=== PATIENT | female | born 1945 | race Caucasian/White ===

== ENCOUNTER 2018-09-29 11:07 | Inpatient (IN) | payer OTHER, MEDICARE ==
[2018-09-29] MEDS ORDERED: ASPIRIN 81 MG CHEWABLE TABLETS PO ONE (11:38)
[2018-09-29] MEDS ORDERED: ASPIRIN COATED 81 MG TABLET.EC ONE (11:45)
[2018-09-29 12:06] LABS: BASO % 0.4 % (0-2.0); EOS % 0.6 % (0-4.5); HEMATOCRIT 26.6 % (32.4-45.2); HEMOGLOBIN 8.6 GM/dL (10.7-15.3); LYMPH % 90.8 % (8-40); MCH 29.4 pg (25.7-33.7); MCHC 32.4 g/dl (32.0-36.0); MEAN CELL VOLUME 90.6 fl (80-96); MEAN PLT VOLUME 8.1 fl (7.5-11.1); MONO % 1.9 % (3.8-10.2); NEUT % 6.3 % (42.8-82.8); PLATELET COUNT 99 K/MM3 (134-434); RBC 2.93 M/mm3 (3.60-5.2)
--- NOTE | 2018-09-29 12:12 | PDOC ---
History of Present Illness - General History Source: Patient Exam Limitations: No Limitations <ParulAllan - Last Filed: 09/29/18 14:54> <Nanci Harmon - Last Filed: 09/29/18 15:03> - General Chief Complaint: Chest Pain Stated Complaint: ARM AND CHEST PAIN Time Seen by Provider: 09/29/18 11:37 - History of Present Illness Initial Comments: 09/29/18 12:58 73y F hx of htn, DM, afib (on coumdin and dig), hl, thyroid disease presents with complaint of L sided cp radiationg ot the L arm for the past month and a half. Pt notes after coming back from her cruise in mid august, she has cough productive of greenish sputum and nasal and chest coingestion. CP is lieft sided and radiates to the L rib area seems worse with coughing. she went to her PMD who thought it was a URI and was treated with flonase, albuterol. Sypmtoms have been persistent. Pt also notes a mild pain behind her R knee without significantly incrased swelling. Pt also notes occasional decreased strength on her R arm, where she will drop things, but this is onconsistent. Family notes for the past fe days, she seemed not herself. Pt has chronic RUSSO, which is at baseline if she walks her usual pace. Pt denies any fever/chills, hemoptysis, leg swelling, back pain, abd pain, n/v, diapprhosis, ligheahdedness, palpitations. denies dysuria, frequency, diarrhea, jmelena, bpr. +family with URI sypmtoms but everyones symotoms have resolved except for her +recent travel - cruise to [employer], driving from [place] back to [place] Allergies: NKA Past surgical history: None reported. Social history: No reported alcohol, drug or cigarette use. 09/29/18 14:54 (Allan Teran) Past History - Past Medical History Cardiac Disorders: Yes (A FIB) COPD: No Diabetes: Yes HTN: Yes Hypercholesterolemia: Yes Thyroid Disease: Yes - Immunization History Immunization Up to Date: Yes - Suicide/Smoking/Psychosocial Hx Smoking Status: Yes Smoking History: Never smoked Have you smoked in the past 12 months: No Number of Cigarettes Smoked Daily: 0 If you are a former smoker, when did you quit?: 15yrs ago Hx Alcohol Use: No Drug/Substance Use Hx: No Substance Use Type: None <Allan Teran - Last Filed: 09/29/18 14:54> <Nanci Harmon - Last Filed: 09/29/18 15:03> - Past Medical History Allergies/Adverse Reactions: Allergies Allergy/AdvReac Type Severity Reaction Status Date / Time Sulfa (Sulfonamide AdvReac Verified 09/29/18 11:15 Antibiotics) Home Medications: Ambulatory Orders Levothyroxine [Synthroid -] 100 mcg PO DAILY 03/22/12 Aspirin Coated [Ecotrin -] 81 mg PO DAILY 08/02/16 Atorvastatin Ca [Lipitor] 20 mg PO HS 08/02/16 Digoxin [Lanoxin -] 0.25 mg PO DAILY 08/02/16 Furosemide [Lasix -] 20 mg PO DAILY 08/02/16 Losartan Potassium 25 mg PO DAILY 08/02/16 Metoprolol Succinate [Toprol XL -] 50 mg PO HS 08/02/16 Metoprolol Succinate [Toprol XL -] 100 mg PO DAILY 08/02/16 Warfarin Sodium [Coumadin] 1 mg PO ASDIR 08/05/16 Calcium Carb, Citrate/Vit D3 [Calcium + D3 ER Tablet] 1 tab PO DAILY 03/06/18 Fluticasone Prop 0.05% Nasal [Flonase -] 50 mg NS DAILY PRN 03/06/18 Multivitamin [One Daily] 1 tab PO DAILY 03/06/18 Potassium 1,080 mg PO BID 03/06/18 Review of Systems - Review of Systems Able to Perform ROS?: Yes <Allan Teran - Last Filed: 09/29/18 14:54> <Nanci Harmon - Last Filed: 09/29/18 15:03> - Review of Systems Comments:: 09/29/18 13:03 Constitutional - no reported Fever, Chills, HEENT: no reported vision changes, sore throat Respiratory: +RUSSO (at baseline), cough no reported cough, sob, hemoptysis Cardiac: +chest pain, no reported palpitations, light headedness, leg swelling Abd/GI: no reported abd pain, nausea, vomiting, blood per rectum, melena, diarrhea : no reported dysuria, frequency, discharge Musculskelatal - no reported back pain, joint swelling skin - no reported bruising, erythema, rash neurological: no reported headache, numbness, focal weakness, tingling, ataxia, hematologic: no reported easy bruising, easy bleeding (Allan Teran) *Physical Exam <Parul,Allan - Last Filed: 09/29/18 14:54> <Nanci Harmon - Last Filed: 09/29/18 15:03> - Vital Signs Last Vital Signs Temp Pulse Resp BP Pulse Ox 98.3 F 87 20 130/80 98 09/29/18 14:55 09/29/18 14:55 09/29/18 14:55 09/29/18 14:55 09/29/18 14:55 - Physical Exam Comments: 09/29/18 13:03 GENERAL: The patient is awake, alert, and fully oriented, Nontoxic - in no acute distress. HEAD: Normocephalic, atraumatic. EYES: extraocular movements intact, sclera anicteric, conjunctiva clear. ENT: Normal voice, Moist mucous membranes. NECK: Normal range of motion, supple LUNGS: Breath sounds equal, clear to auscultation bilaterally. No wheezes, no rhonchi, no rales. no respiratory distress, speaking complete sentences HEART: irregularly irregular ABDOMEN: Soft, mild LUQ tenderness, No guarding, no rebound. . No CVA tenderness EXTREMITIES: Normal range of motion, +1 pitting edema, R>L, neg homans, mild tenderness at proximal R calf NEUROLOGICAL: No facial assymetry, Normal speech, moving all 4 extremities spontaneously and ysmmetrically PSYCH: Normal mood, normal affect. SKIN: Warm, Dry, normal turgor, (Allan Teran) Heart Score/ECG Review <ParulAllan - Last Filed: 09/29/18 14:54> <Nanci Harmon - Last Filed: 09/29/18 15:03> - ECG Impressions Comment:: 09/29/18 12:11 Twelve-lead EKG was performed and reviewed by me. Irregularly irregular rate of 84 TWI in lead III unchanged from prior ekg in 2016 (Allan Teran) ED Treatment Course - LABORATORY CBC & Chemistry Diagram: 09/29/18 11:45 09/29/18 13:20 <Allan Teran - Last Filed: 09/29/18 14:54> - LABORATORY CBC & Chemistry Diagram: 09/29/18 11:45 09/29/18 13:20 <Nanci Harmon - Last Filed: 09/29/18 15:03> - ADDITIONAL ORDERS Additional order review: Laboratory Results 09/29/18 09/29/18 09/29/18 13:20 11:45 11:45 PT with INR INR D-Dimer 1275 H Sodium 139 140 Potassium 3.3 L 3.3 L Chloride 103 103 Carbon Dioxide 25 25 Anion Gap 11 12 BUN 19 H 18 Creatinine 1.0 1.0 Creat Clearance w eGFR 54.05 54.05 Random Glucose 112 H 105 Calcium 7.9 L 7.8 L Magnesium 1.4 L 1.4 L Total Bilirubin 1.1 H 1.0 AST 51 H 48 H ALT 37 33 Alkaline Phosphatase 116 119 H Creatine Kinase 45 45 Troponin I < 0.02 < 0.02 Total Protein 6.2 L 6.2 L Albumin 2.8 L 2.8 L Digoxin 1.66 09/29/18 11:45 PT with INR 22.60 H INR 1.90 H D-Dimer Sodium Potassium Chloride Carbon Dioxide Anion Gap BUN Creatinine Creat Clearance w eGFR Random Glucose Calcium Magnesium Total Bilirubin AST ALT Alkaline Phosphatase Creatine Kinase Troponin I Total Protein Albumin Digoxin 09/29/18 11:45 RBC 2.93 L MCV 90.6 MCHC 32.4 RDW 24.0 H MPV 8.1 D Neutrophils % 6.3 L D Lymphocytes % 90.8 H D Monocytes % 1.9 L Eosinophils % 0.6 D Basophils % 0.4 - Medications Given in the ED: ED Medications Discontinued Medications Generic Name Dose Route Start Last Admin Trade Name Freq PRN Reason Stop Dose Admin Aspirin 162 mg 09/29/18 11:38 09/29/18 11:49 Asa - PO 09/29/18 11:39 162 mg ONCE ONE Administration Medical Decision Making <Allan Teran - Last Filed: 09/29/18 14:54> <Nanci Harmon - Last Filed: 09/29/18 15:03> - Medical Decision Making 09/29/18 12:19 73yF hx of afib, hypothyroidism, presents with L sided cp radiationg to L shoulder, worse with inspiration, so she did with URI-like symptoms since coming back from a cruise. pt also with syptoms of intermittent arm weakness Exam the patient is well-appearing, in no acute distress her vital signs noted for mild hypoxia to the high 80s however corrects easily with 1 L of o2. Patient is in no acute respiratory distress. neuro exam intact Differential for this patient's symptoms includes pneumonia, pulmonary embolism , acs, anemia, metabolic derangement will ck labs, cxr if xray neg will obtain CTA will obtain CT head ekg to screen for arrythmia will reasses 09/29/18 14:27 labs reviewed noted for significant leukocytosis CTA neg for PE however, noted for splenomegaly suspect malignancy/leukemia ct head neg for acute process will admit for further management 09/29/18 14:[address] maradiaga covering for dr. gaines agrees wit admission for further mangaement will consult dr. kruger service (hemon) stable fo rmed surg Case discussed in detail with admitting physician including history, physical exam and ancillary studies. Admitting physician has assumed care for the patient, will follow all pending diagnostics and will complete the evaluation and treatment. (Allan Teran) 09/29/18 14:[address] Maradiaga's service. (Nanci Harmon) *DC/Admit/Observation/Transfer - Discharge Dispostion Decision to Admit order: Yes <Allan Teran - Last Filed: 09/29/18 14:54> <Nanci Harmon - Last Filed: 09/29/18 15:03> Diagnosis at time of Disposition: Splenomegaly Leukocytosis Qualifiers: Leukocytosis type: unspecified Qualified Code(s): D72.829 - Elevated white blood cell count, unspecified - Discharge Dispostion Condition at time of disposition: Improved - Referrals Referrals: Du Gaines MD [Primary Care Provider] - - Patient Instructions - Post Discharge Activity
[2018-09-29 12:14] LABS: WHITE BLOOD COUNT 81.5 K/mm3 (4.0-10.0)
[2018-09-29 12:34] LABS: INR 1.9 (0.83-1.09); PROTHROMBIN TIME (PATIENT) 22.6 SEC (9.7-13.0)
[2018-09-29 12:42] LABS: ALBUMIN 2.8 g/dl (3.4-5.0); ALK PHOS 119 U/L (45-117); ANION GAP 12 MMOL/L (8-16); BLOOD UREA NITROGEN 18 mg/dL (7-18); CALCIUM 7.8 mg/dL (8.5-10.1); CHLORIDE 103 mmol/L (98-107); CO2 25 mmol/L (21-32); GLUCOSE,RANDOM 105 mg/dL (74-106); MAGNESIUM 1.4 mg/dL (1.8-2.4); POTASSIUM 3.3 mmol/L (3.5-5.1); SGOT/AST 48 U/L (15-37); SGPT/ALT 33 U/L (13-61); SODIUM 140 mmol/L (136-145); TOT PROT 6.2 g/dl (6.4-8.2)
[2018-09-29 14:23] LABS: ALBUMIN 2.8 g/dl (3.4-5.0); ALK PHOS 116 U/L (45-117); ANION GAP 11 MMOL/L (8-16); BILIRUBIN,TOTAL 1.1 mg/dL (0.2-1); BLOOD UREA NITROGEN 19 mg/dL (7-18); CALCIUM 7.9 mg/dL (8.5-10.1); CHLORIDE 103 mmol/L (98-107); CO2 25 mmol/L (21-32); GLUCOSE,RANDOM 112 mg/dL (74-106); MAGNESIUM 1.4 mg/dL (1.8-2.4); POTASSIUM 3.3 mmol/L (3.5-5.1); SGOT/AST 51 U/L (15-37); SGPT/ALT 37 U/L (13-61); SODIUM 139 mmol/L (136-145); TOT PROT 6.2 g/dl (6.4-8.2)
[2018-09-29] MEDS ORDERED: FLUTICASONE PROP 0.05% 16 GM NASAL SPRAY NS PRN (15:09)
[2018-09-29] MEDS ORDERED: WARFARIN NA 1 MG TABLET (FP) PO SCH ×2 (15:15→18:00)
[2018-09-29] MEDS ORDERED: WARFARIN NA 1 MG TABLET (FP) ONE (15:18)
--- NOTE | 2018-09-29 15:48 | CON.CARD ---
Cardiology Consult (text) - Consultation Consultation Note: Cardiology Consult Dictated IMP: Suspected CLL Marked Anemia Permanent Atrial Fibrillation on Warfarin Non-obstructive CAD REC: 1. Maintain INR 2-3, may need to hold warfarin if plan for bone marrow bx 2. Heme Evaluation pending 3. Echo 4. Currently rate controlled, continue current Rx Will follow
[2018-09-29] MEDS ORDERED: POTASSIUM CHLORIDE TABS 20 MEQ TABLET.ER (FP) PO ONE (16:49)
[2018-09-29] MEDS: POTASSIUM CHLORIDE TABS 20 MEQ TABLET.ER (FP) PO SCH (16:51)
--- NOTE | 2018-09-29 16:55 | CONS ---
DATE OF CONSULTATION: DATE OF DICTATION: 09/29/2018 CARDIOLOGY CONSULTATION REQUESTED BY: Milton Bernal MD REASON FOR CONSULTATION: Evaluation of dyspnea and atrial fibrillation. Patient is a 73-year-old female known to me from office practice since approximately 2008. She has permanent atrial fibrillation on warfarin, history of nonischemic cardiomyopathy with normalized ejection fraction with rate control and medical therapy. She also has hypothyroidism. Over the last 6 weeks, she has experienced generalized fatigue, malaise, chills, and exertional dyspnea. She returned from a cruise several weeks ago with symptoms of what she thought was a viral URI and completed outpatient evaluations which included a course of antibiotics and the use of inhalers. Her symptoms persisted. She was recently discovered to be anemic. She was brought to the emergency room today by her family for persistent symptoms of malaise, generalized fatigue, and occasional chills. In the emergency department, she was found to be markedly anemic with hematocrit of 26.6, marked leukocytosis of 82,000 with 91% neutrophils. She was also thrombocytopenic. A CT scan was performed to rule out pulmonary embolism which was negative but also showed splenomegaly. In the emergency department, she was seen and examined in no acute distress. She appears pale. SHE HAS ALLERGIES TO SULFA. CURRENT MEDICATIONS: Include warfarin 1 mg p.o. nightly, multivitamin daily, Toprol XL 50 mg p.o. nightly, and 100 mg p.o. daily, losartan 25 mg p.o. daily, Synthroid 100 mcg p.o. daily, Lasix 20 mg p.o. daily, Flonase p.r.n., digoxin 0.125 p.o. daily, atorvastatin 20 p.o. nightly, and aspirin 81 mg daily. FAMILY HISTORY: Noncontributory. SOCIAL HISTORY: Lives with her significant other. She is a nonsmoker. Occasional alcohol. No illegal drugs. PHYSICAL EXAMINATION: Vital Signs: Afebrile in the ER to 98.3, pulse 87 and irregular, blood pressure 130/80, O2 saturation is 98% on room air. Neck: No bruits. No JVD. Heart: S1, 2 irregular. Chest: Decreased breath sounds at the bases with scattered rhonchi. No active wheezing. EKG showed atrial fibrillation at 84 beats per minute with nonspecific T-wave changes. Labs: White count 81,000, hemoglobin 8.6, hematocrit 26.6, platelets 99,000, absolute neutrophils 5.2, lymphocytes 91%. D-dimer was elevated 1275. INR 1.9. Sodium 139, potassium 3.3. Creatinine 1.0. Magnesium 1.4. Total bilirubin 1.1. AST 51, ALT 37, alkaline phosphatase 116. CK and troponin negative x2 sets. Albumin was 2.8. Digoxin level was normal at 1.66. A CT scan of the head showed no acute pathology. CTA of the chest showed no evidence of PE, chronic lung disease, left basilar atelectasis, and left lower lobe nodule. Cardiomegaly without pericardial effusion and splenomegaly which is new since December 2017. IMPRESSION: 1. 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 2. Marked anemia. 3. Permanent atrial fibrillation on warfarin. 4. Nonobstructive coronary disease. RECOMMENDATIONS: 1. INR goal of 2-3, may need to hold warfarin if there is plan for further hematologic workup-? bone marrow biopsy. 2. Heme evaluation is currently pending. 3. Echocardiogram. 4. Currently, heart rate is well controlled. We will continue home rate control medications. Will follow. BRINA LYNCH M.D. [id number]
--- NOTE | 2018-09-29 17:03 | PN ---
Progress Note (short form) - Note Progress Note: Consult dictated 73 year old presents with atypical chest pain and SOB Found to have anemia, thrombocytopenia and leucocytosis PMH- HBP, HPL, S/P [place], hx of gout, hx of anemia, hx of thryroid disease , DM(II ) Soc Hx- 43 pack years, social ETOH No industrial exposures Allergies- Nitro furantoin Meds Current Medications Generic Name Dose Route Start Last Admin Trade Name Freq PRN Reason Stop Dose Admin Aspirin 81 mg 09/30/18 10:00 Ecotrin - PO DAILY THEE Atorvastatin Calcium 20 mg 09/29/18 22:00 Lipitor - PO HS THEE Digoxin 0.25 mg 09/30/18 10:00 Lanoxin - PO DAILY THEE Fluticasone Propionate 1 spray 09/29/18 15:09 Flonase - NS DAILY PRN allegy Levothyroxine Sodium 100 mcg 09/30/18 07:00 Synthroid - PO DAILY@0700 THEE Losartan Potassium 25 mg 09/30/18 10:00 Cozaar - PO DAILY THEE Magnesium Oxide 400 mg 09/29/18 22:00 Mag-Ox - PO BID THEE Metoprolol Succinate 100 mg 09/30/18 10:00 Toprol Xl - PO DAILY THEE Metoprolol Succinate 50 mg 09/29/18 22:00 Toprol Xl - PO HS THEE Potassium Chloride 40 meq 09/29/18 15:45 09/29/18 16:51 K-Dur - PO 40 meq DAILY THEE Administration Warfarin Sodium 1 mg 09/29/18 18:00 Coumadin - PO DAILY@1800 [facility] ROS- headache - relieved by tyleno, epistaxis, atypical chest pain, SOB no GI complaints, Microscopic hematuria, neuropathy LE's, PE HEENT: KALANI, EOM Intact Oropharynx: No thrush, No mucositis Neck: Supple Nodes: Without adenopathy Breasts: Without masses Cor: irregular No murmurs, No gallops Lungs: rhonchi, bronchial breath sounds Abd: Soft, Normal bowel sounds, No organomegaly Ext:No significant edema Skin: No rashes, Integument intact CBC, BMP 09/29/18 11:45 09/29/18 13:20 Abnormal Lab Results 09/29/18 09/29/18 09/29/18 11:45 11:45 11:45 WBC 81.5 H* RBC 2.93 L Hgb 8.6 L Hct 26.6 L D RDW 24.0 H Plt Count 99 L D Neutrophils % 6.3 L D Neutrophils % (Manual) 2.0 L Lymphocytes % 90.8 H D Lymphocytes % (Manual) 50.0 H Monocytes % 1.9 L Blast Cells % (Manual) 40 H Nucleated RBC % 1 H PT with INR 22.60 H INR 1.90 H D-Dimer Potassium 3.3 L BUN Random Glucose Calcium 7.8 L Magnesium 1.4 L Total Bilirubin AST 48 H Alkaline Phosphatase 119 H Total Protein 6.2 L Albumin 2.8 L 09/29/18 09/29/18 11:45 13:20 WBC RBC Hgb Hct RDW Plt Count Neutrophils % Neutrophils % (Manual) Lymphocytes % Lymphocytes % (Manual) Monocytes % Blast Cells % (Manual) Nucleated RBC % PT with INR INR D-Dimer 1275 H Potassium 3.3 L BUN 19 H Random Glucose 112 H Calcium 7.9 L Magnesium 1.4 L Total Bilirubin 1.1 H AST 51 H Alkaline Phosphatase Total Protein 6.2 L Albumin 2.8 L Impression: Review of peripheral smear reveals mainly blasts. They appear mainly myeloid also some monocytoid features suggesting myelo- monocytic leukemia Flow cytometry has been sent . Need to replete K+, and Magnesium. Will need to gently hydrate, begin allopurinol and obtain CT chest , abdomen, and pelvic Cardiac ECHO and ejection fraction Daily monitoring of labs. Would obtain urine for C & S . Cardiac follow up. - HX of chest pain and atrial fib.
--- NOTE | 2018-09-29 18:04 | CONS ---
DATE OF CONSULTATION: 09/29/2018 This is a 73-year-old female being seen for evaluation of an elevation of white count. Patient presents with 1-day history of left anterior chest pain radiating down the arm and into the left upper quadrant. She presents with shortness of breath and difficulty breathing. Upon presentation to the emergency room, she was noted to have a white count of 81,500, hemoglobin 8.6, hematocrit 26.6, with platelet count of 99,000. Peripheral smear review reveals predominant blasts which have the appearance of myeloid and monocytoid forms raising the possibility of acute leukemia. SOCIAL HISTORY: The patient is with 3 daughters. The patient is a smoker from age 15 until age 58 a 43 pack-year history. She is a social drinker. There are no industrial exposures or intoxicants. She denies illicit drugs. She is of [place] background. FAMILY HISTORY: Noncontributory for hematologic malignancy or cancer. PAST MEDICAL HISTORY: The patient has a history of NC, history of hypercholesterolemia, has a history of hypertension, has a history of diabetes type 2 on oral agents. No history of hepatitis. No history of gallbladder disease. There is a history of thyroid disease. There is a history of anemia. No history of thalassemia or Mediterranean anemia. There is a distant history of gout and no history of TB. PAST SURGICAL HISTORY: Includes normal vaginal deliveries x3 as well as a total hysterectomy for benign conditions for "prevention." The patient is a 3, para 3, AB 0 female who had her menarche at a young age and menopause at the time of her hysterectomy. REVIEW OF SYSTEMS: The patient complains of occasional frontal headaches relieved by Tylenol. There is no blurry vision. The patient had recent epistaxis which was relieved by some saline injection. There is no dysphagia. There is no odynophagia. There is minimal hoarseness and change in voice. The patient denies fever, chills, sweats, but has had weight loss of about 15 pounds since a cruise in August. She has been anorexic over this time period. Patient as aforementioned has chest pain with some reflux. The patient presents with shortness of breath, difficulty breathing, some nonproductive cough. The patient denies nausea, vomiting, diarrhea, constipation, melena. The patient has had urinary tract infections, has been seen by , and was treated previously with antibiotics. Currently no dysuria, but some microscopic hematuria described according to the patient. The patient denies significant back pain. The patient has some numbness of the lower extremities compatible with neuropathy. MEDICINES: Include Synthroid 100 mcg a day, aspirin 81 mg a day, atorvastatin 20 mg a day, Lanoxin 0.25 a day, Lasix 20 a day, losartan 25 a day, metoprolol 150 a day, Coumadin 1 mg and 2 mg tablets, calcium and vitamin D, Flonase p.r.n., multivite and potassium. PATIENT IS ALLERGIC TO NITROFURANTOIN. PHYSICAL EXAMINATION: Vital Signs: Temperature 98.2, BP 116/65, O2 saturation 96, respiratory rate 18, pulse 85. HEENT: KALANI. EOM intact. Oropharynx no mucositis, pharyngitis. No thrush. Neck: Supple. No thyromegaly. No cervical or axillary nodes. Lungs: Scattered rhonchi. Bronchial breath sounds. Cardiac: Regular rhythm. Breasts: No dominant masses. Abdomen: Soft. No organomegaly or masses. Extremities: No significant edema. LABORATORY: As described WBC 81.5, hematocrit 26.6, platelets 99,000. A differential, according to Lab, 6% polys, 91% lymphs. Upon review, these appear to be blast in nature. INR 1.9. D-dimer 1275. Chest CT: No evidence of pulmonary embolism, chronic lung disease, left basilar atelectasis, left lower lobe pulmonary nodule, cardiomegaly, splenomegaly developed since December 2017. Head CT: No contrast. 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 Chest x-ray: Reveal costophrenic angles with degenerative changes, wedging, increased in lung markings, prominent hilar and clear lung shen. Chemistries: Sodium 139, potassium 3.3, chloride 103, CO2 of 24. BUN 11, creatinine 1.0. Glucose 112. Magnesium 1.4. AST 51, ALT 37, alkaline phosphatase 116. Troponin less than 0.2. Protein 6.2, albumin 2.8. IMPRESSION: This 73-year-old female presents with shortness of breath and chest pain which is of an atypical nature, is noted to have a high white count. Review of the peripheral smear suggests that most of the cells which are lymphocytes appear to be blasts with prominent nucleoli. They did not have prominent granules suggestive of promyelocytic leukemia, but some of the blasts have some convolution suggesting a monocytoid component suggesting the possibility of myelomonocytic leukemia. Patient does have thrombocytopenia and anemia as well. Patient laboratory flores has hypokalemia which these could be corrected, hypomagnesemia which needs to be corrected. Patient will need daily CBCs. Flow cytometry has been obtained and will be sent for FISH as well as cytogenetics. Patient will need chest, abdomen, and pelvic CT, LDH, uric acid, in addition to CAT scan evaluation based upon flow cytometry further recommendations. Thank you. CHARLI HENRIQUEZ M.D. [id number]
[2018-09-29 18:40] VITALS: BMI 29.0
[2018-09-29] MEDS ORDERED: FLU VACCINE QUAD 60 MCG/0.5 ML (MDV 18-19) IM ONE (18:42)
[2018-09-29] MEDS ORDERED: PNEUMOC 13-VAL CONJ-DIP CRM/PF 0.5 ML DISP.SYRIN IM ONE (18:46)
[2018-09-29 20:06] LABS: URIC ACID 9.8 mg/dL (2.6-7.2)
[2018-09-29] MEDS ORDERED: ATORVASTATIN CA 10 MG TABLET (FP) PO SCH (22:00)
[2018-09-29] MEDS: MAGNESIUM OXIDE 400 MG TABLET (FP) PO SCH (22:24)
[2018-09-30] MEDS ORDERED: ACETAMINOPHEN 325 MG TABLET (FP) PO ONE (01:29)
[2018-09-30] MEDS ORDERED: LEVOTHYROXINE NA 100 MCG TABLET (FP) PO SCH (07:00)
[2018-09-30 07:32] LABS: BASO % 0.9 % (0-2.0); EOS % 0.7 % (0-4.5); LYMPH % 91.6 % (8-40); MCH 27.4 pg (25.7-33.7); MCHC 30.7 g/dl (32.0-36.0); MEAN CELL VOLUME 89.3 fl (80-96); MONO % 1.8 % (3.8-10.2); PLATELET COUNT 78 K/MM3 (134-434); RBC 2.91 M/mm3 (3.60-5.2)
[2018-09-30 07:53] LABS: ALBUMIN 2.6 g/dl (3.4-5.0); ALK PHOS 120 U/L (45-117); ANION GAP 7 MMOL/L (8-16); BILIRUBIN,TOTAL 1.1 mg/dL (0.2-1); BLOOD UREA NITROGEN 17 mg/dL (7-18); CALCIUM 7.8 mg/dL (8.5-10.1); CHLORIDE 103 mmol/L (98-107); CHOLESTEROL 101 mg/dL (50-200); CO2 29 mmol/L (21-32); CREATININE 0.8 mg/dL (0.55-1.3); GLUCOSE,RANDOM 94 mg/dL (74-106); HDL CHOLESTEROL 9 mg/dL (40-60); MAGNESIUM 1.6 mg/dL (1.8-2.4); POTASSIUM 3.3 mmol/L (3.5-5.1); SGOT/AST 45 U/L (15-37); SGPT/ALT 38 U/L (13-61); SODIUM 139 mmol/L (136-145); TOT PROT 5.8 g/dl (6.4-8.2); TRIGLYCERIDES 280 mg/dL (0-150)
[2018-09-30 07:55] LABS: WHITE BLOOD COUNT 61.6 K/mm3 (4.0-10.0)
[2018-09-30 08:18] LABS: INR 1.87 (0.83-1.09); PROTHROMBIN TIME (PATIENT) 22.2 SEC (9.7-13.0)
--- NOTE | 2018-09-30 09:59 | PN ---
Progress Note, Physician Chief Complaint: seen and examined No acute distress Denies any further CP: most of her discomfort is under the left rib, LUQ and bothers her when she stands from seated position or from supine position - Current Medication List Current Medications: Active Medications Aspirin (Ecotrin -) 81 mg PO DAILY COUNT INCLUDES THE [facility] Atorvastatin Calcium (Lipitor -) 20 mg PO HS COUNT INCLUDES THE [facility] Last Admin: 09/29/18 22:25 Dose: 20 mg Digoxin (Lanoxin -) 0.25 mg PO DAILY COUNT INCLUDES THE [facility] Fluticasone Propionate (Flonase -) 1 spray NS DAILY PRN PRN Reason: allegy Levothyroxine Sodium (Synthroid -) 100 mcg PO DAILY@0700 COUNT INCLUDES THE [facility] Last Admin: 09/30/18 06:01 Dose: 100 mcg Losartan Potassium (Cozaar -) 25 mg PO DAILY COUNT INCLUDES THE [facility] Magnesium Oxide (Mag-Ox -) 400 mg PO BID COUNT INCLUDES THE [facility] Last Admin: 09/29/18 22:24 Dose: 400 mg Metoprolol Succinate (Toprol Xl -) 100 mg PO DAILY COUNT INCLUDES THE [facility] Metoprolol Succinate (Toprol Xl -) 50 mg PO HS COUNT INCLUDES THE [facility] Last Admin: 09/29/18 22:25 Dose: 50 mg Potassium Chloride (K-Dur -) 40 meq PO DAILY COUNT INCLUDES THE [facility] Last Admin: 09/29/18 16:51 Dose: 40 meq Warfarin Sodium (Coumadin -) 1 mg PO DAILY@1800 COUNT INCLUDES THE [facility] Last Admin: 09/29/18 19:03 Dose: Not Given - Objective Vital Signs: Vital Signs Temperature 98.2 F 09/30/18 05:28 Pulse Rate 94 H 09/30/18 05:28 Respiratory Rate 20 09/30/18 05:28 Blood Pressure 109/81 09/30/18 05:28 O2 Sat by Pulse Oximetry (%) 95 09/29/18 21:00 Constitutional: Yes: Calm Cardiovascular: Yes: Pulse Irregular Respiratory: Yes: CTA Bilaterally Gastrointestinal: Yes: Soft (enlarged spleen.) Edema: No Neurological: Yes: Alert, Oriented ...Motor Strength: WNL Labs: CBC, BMP 09/30/18 06:30 09/30/18 06:30 INR, PTT INR 1.87 (0.83-1.09) H 09/30/18 06:30 Fibrinogen 460.0 mg/dL (238-498) 09/29/18 18:51 Laboratory Tests 09/29/18 09/30/18 09/30/18 15:24 06:30 06:30 WBC 61.6 H* Hgb 8.0 L Hct 26.0 L Plt Count 78 L D INR 1.87 H Sodium Potassium BUN Creatinine Magnesium Creatine Kinase 40 Troponin I < 0.02 09/30/18 06:30 WBC Hgb Hct Plt Count INR Sodium 139 Potassium 3.3 L BUN 17 Creatinine 0.8 Magnesium 1.6 L Creatine Kinase 31 Troponin I < 0.02 Laboratory Tests 09/30/18 06:30 INR 1.87 H Assessment/Plan IMP: Suspected Leukemia Marked Anemia Permanent Atrial Fibrillation on Warfarin Non-obstructive CAD REC: 1. Maintain INR 2-3, subtherapeutic today--> adjusted tonight's dose. 2. Heme Evaluation pending, flow cytometry pending. 3. Echo 4. Currently rate controlled, continue current Rx
[2018-09-30] MEDS ORDERED: ASPIRIN COATED 81 MG TABLET.EC PO SCH (10:00)
[2018-09-30] MEDS ORDERED: LOSARTAN POTASSIUM 25 MG TABLET PO SCH (10:00)
[2018-09-30] MEDS ORDERED: DIGOXIN 0.25 MG TABLET (FP) PO SCH (10:00)
[2018-09-30] MEDS: MAGNESIUM OXIDE 400 MG TABLET (FP) PO SCH (10:11)
[2018-09-30] MEDS: POTASSIUM CHLORIDE TABS 20 MEQ TABLET.ER (FP) PO SCH (10:11)
--- NOTE | 2018-09-30 11:44 | PN ---
Progress Note (short form) - Note Progress Note: Patient seen and examined Last Vital Signs Temp Pulse Resp BP Pulse Ox 98.2 F 92 H 20 109/81 95 09/30/18 05:28 09/30/18 11:26 09/30/18 05:28 09/30/18 05:28 09/29/18 21:00 Cor: RSR, No murmurs, No gallops Lungs: Clear to P&A Abd: Soft, Normal bowel sounds, No organomegaly Ext:No significant edema Abnormal Lab Results 09/29/18 09/29/18 09/29/18 11:45 11:45 11:45 WBC 81.5 H* RBC 2.93 L Hgb 8.6 L Hct 26.6 L D MCHC RDW 24.0 H Plt Count 99 L D Neutrophils % 6.3 L D Neutrophils % (Manual) 2.0 L Lymphocytes % 90.8 H D Lymphocytes % (Manual) 50.0 H Monocytes % 1.9 L Blast Cells % (Manual) 40 H Nucleated RBC % 1 H PT with INR 22.60 H INR 1.90 H D-Dimer Potassium 3.3 L Anion Gap BUN Random Glucose Uric Acid Calcium 7.8 L Magnesium 1.4 L Total Bilirubin AST 48 H Alkaline Phosphatase 119 H LD Total Total Protein 6.2 L Albumin 2.8 L Triglycerides HDL Cholesterol 09/29/18 09/29/18 09/29/18 11:45 13:20 18:51 WBC RBC Hgb Hct MCHC RDW Plt Count Neutrophils % Neutrophils % (Manual) Lymphocytes % Lymphocytes % (Manual) Monocytes % Blast Cells % (Manual) Nucleated RBC % PT with INR INR D-Dimer 1275 H Potassium 3.3 L Anion Gap BUN 19 H Random Glucose 112 H Uric Acid 9.8 H Calcium 7.9 L Magnesium 1.4 L Total Bilirubin 1.1 H AST 51 H Alkaline Phosphatase LD Total 795 H Total Protein 6.2 L Albumin 2.8 L Triglycerides HDL Cholesterol 09/30/18 09/30/18 09/30/18 06:30 06:30 06:30 WBC 61.6 H* RBC 2.91 L Hgb 8.0 L Hct 26.0 L MCHC 30.7 L RDW 25.0 H Plt Count 78 L D Neutrophils % 5.0 L D Neutrophils % (Manual) Lymphocytes % 91.6 H Lymphocytes % (Manual) Monocytes % 1.8 L Blast Cells % (Manual) Nucleated RBC % PT with INR 22.20 H INR 1.87 H D-Dimer Potassium 3.3 L Anion Gap 7 L BUN Random Glucose Uric Acid Calcium 7.8 L Magnesium 1.6 L Total Bilirubin 1.1 H AST 45 H Alkaline Phosphatase 120 H LD Total Total Protein 5.8 L Albumin 2.6 L Triglycerides 280 H HDL Cholesterol 9 L Active Medications Generic Name Dose Route Start Last Admin Trade Name Freq PRN Reason Stop Dose Admin Aspirin 81 mg 09/30/18 10:00 09/30/18 10:11 Ecotrin - PO 81 mg DAILY THEE Administration Atorvastatin Calcium 20 mg 09/29/18 22:00 09/29/18 22:25 Lipitor - PO 20 mg HS THEE Administration Digoxin 0.25 mg 09/30/18 10:00 09/30/18 11:26 Lanoxin - PO 0.25 mg DAILY THEE Administration Fluticasone Propionate 1 spray 09/29/18 15:09 Flonase - NS DAILY PRN allegy Levothyroxine Sodium 100 mcg 09/30/18 07:00 09/30/18 06:01 Synthroid - PO 100 mcg DAILY@0700 THEE Administration Losartan Potassium 25 mg 09/30/18 10:00 09/30/18 10:11 Cozaar - PO 25 mg DAILY THEE Administration Magnesium Oxide 400 mg 09/29/18 22:00 09/30/18 10:11 Mag-Ox - PO 400 mg BID THEE Administration Metoprolol Succinate 100 mg 09/30/18 10:00 09/30/18 10:11 Toprol Xl - PO 100 mg DAILY THEE Administration Metoprolol Succinate 50 mg 09/29/18 22:00 09/29/18 22:25 Toprol Xl - PO 50 mg HS THEE Administration Potassium Chloride 40 meq 09/29/18 15:45 09/30/18 10:11 K-Dur - PO 40 meq DAILY THEE Administration Warfarin Sodium 1 mg 09/29/18 18:00 09/29/18 19:03 Coumadin - PO Not Given DAILY@1800 THEE Warfarin Sodium 2.5 mg 09/30/18 18:00 Coumadin - PO 09/30/18 18:01 ONCE@1800 ONE A/P 73 y/o patient with HBP, HPL, S/P [place], hx of gout, hx of anemia, hx of thryroid disease , DM(II) Soc Hx- 43 pack years, social ETOH
--- NOTE | 2018-09-30 12:06 | EKG ---
Test Reason : Blood Pressure : / mmHG Vent. Rate : 084 BPM Atrial Rate : 104 BPM P-R Int : 000 ms QRS Dur : 088 ms QT Int : 330 ms P-R-T Axes : 000 016 -64 degrees QTc Int : 389 ms POOR DATA QUALITY, INTERPRETATION MAY BE ADVERSELY AFFECTED ATRIAL FIBRILLATION WITH PREMATURE VENTRICULAR OR ABERRANTLY CONDUCTED COMPLEXES ABNORMAL ECG WHEN COMPARED WITH ECG OF 06-AUG-2016 09:05, NO SIGNIFICANT CHANGE WAS FOUND Confirmed by NANCY MIRZA MD ([id number]) on 09/30/2018 12:06:21 PM Referred By: Confirmed By:NANCY MIRZA MD
--- NOTE | 2018-09-30 12:15 | PN ---
Progress Note (short form) - Note Progress Note: ID Consult dictated Probable acute leukemia Chest pain syndrome Afebrile. No evidence of pneumonia on CT Observe off antibiotics
--- NOTE | 2018-09-30 12:25 | HP ---
Admitting History and Physical - Admission History of Present Illness: 73y F hx of htn, DM, afib (on coumdin and dig), hl, thyroid disease presents with complaint of L sided cp radiating to the L arm for the past month and a half. Pt notes after coming back from her cruise in mid august, she has cough productive of greenish sputum and nasal and chest congestion. CP is left sided and radiates to the L rib area seems worse with coughing. Family notes for the past fe days, she seemed not herself. Pt has chronic RUSSO, which is at baseline if she walks her usual pace. - Past Medical History Cardiovascular: Yes: AFIB (permanent), CAD (non-obstructive), Hyperlipdemia ...LMP Comment: years ago ...: No Endocrine: Yes: Hypothyroidism - Past Surgical History Past Surgical History: Yes: Hysterectomy - Smoking History Smoking history: Former smoker Have you smoked in the past 12 months: No Aproximately how many cigarettes per day: 0 If you are a former smoker, when did you quit?: 15yrs ago - Alcohol/Substance Use Hx Alcohol Use: No - Social History ADL: Independent History of Recent Travel: No Home Medications - Allergies Allergies/Adverse Reactions: Allergies Allergy/AdvReac Type Severity Reaction Status Date / Time nitrofurantoin Allergy Mild Hives Verified 09/29/18 16:08 Sulfa (Sulfonamide AdvReac Verified 09/29/18 11:15 Antibiotics) - Home Medications Home Medications: Ambulatory Orders Levothyroxine [Synthroid -] 100 mcg PO DAILY 03/22/12 Aspirin Coated [Ecotrin -] 81 mg PO DAILY 08/02/16 Atorvastatin Ca [Lipitor] 20 mg PO HS 08/02/16 Digoxin [Lanoxin -] 0.25 mg PO DAILY 08/02/16 Furosemide [Lasix -] 20 mg PO DAILY 08/02/16 Losartan Potassium 25 mg PO DAILY 08/02/16 Metoprolol Succinate [Toprol XL -] 50 mg PO HS 08/02/16 Metoprolol Succinate [Toprol XL -] 100 mg PO DAILY 08/02/16 Warfarin Sodium [Coumadin] 1 mg PO ASDIR 08/05/16 Calcium Carb, Citrate/Vit D3 [Calcium + D3 ER Tablet] 1 tab PO DAILY 03/06/18 Fluticasone Prop 0.05% Nasal [Flonase -] 50 mg NS DAILY PRN 03/06/18 Multivitamin [One Daily] 1 tab PO DAILY 03/06/18 Potassium 1,080 mg PO BID 03/06/18 Review of Systems - Review of Systems Constitutional: reports: Weakness Cardiovascular: reports: Chest Pain Respiratory: reports: Cough, SOB on Exertion Gastrointestinal: denies: Abdominal Pain Genitourinary: reports: No Symptoms Neurological: reports: Weakness Physical Examination Vital Signs: Vital Signs Temperature 98.2 F 09/30/18 05:28 Pulse Rate 92 H 09/30/18 11:26 Respiratory Rate 20 09/30/18 05:28 Blood Pressure 109/81 09/30/18 05:28 O2 Sat by Pulse Oximetry (%) 95 09/29/18 21:00 Cardiovascular: Yes: S1, S2 Respiratory: Yes: Diminished Gastrointestinal: Yes: Normal Bowel Sounds, Soft. No: Tenderness Edema: No Neurological: Yes: Alert, Oriented Labs: CBC, BMP 09/30/18 06:30 09/30/18 06:30 Imaging - Results Cat Scan: Report Reviewed Problem List - Problems (1) Leukemia Assessment/Plan: -Oncology on board -IVF -Meds per oncology -Follow labs Code(s): C95.90 - LEUKEMIA, UNSPECIFIED NOT HAVING ACHIEVED REMISSION (2) Leukocytosis Assessment/Plan: -As Above Code(s): D72.829 - ELEVATED WHITE BLOOD CELL COUNT, UNSPECIFIED Qualifiers: Leukocytosis type: unspecified Qualified Code(s): D72.829 - Elevated white blood cell count, unspecified (3) Splenomegaly Assessment/Plan: -Maybe due to above--CLL Code(s): R16.1 - SPLENOMEGALY, NOT ELSEWHERE CLASSIFIED (4) CAD (coronary artery disease) Assessment/Plan: -Cardio on board -Continue with Meds Code(s): I25.10 - ATHSCL HEART DISEASE OF [place] CORONARY ARTERY W/O ANG PCTRS Qualifiers: Coronary Disease-Associated Artery/Lesion type: [place] artery Associated angina: without angina (5) Permanent atrial fibrillation Assessment/Plan: -Monitor Inr Code(s): I48.2 - CHRONIC ATRIAL FIBRILLATION
[2018-09-30] MEDS ORDERED: ALLOPURINOL 300 MG TABLET (FP) PO SCH (12:30)
[2018-09-30] MEDS ORDERED: ENOXAPARIN NA (PORCINE) 80 MG/0.8 ML DISP.SYRIN SQ SCH (12:45)
--- NOTE | 2018-09-30 13:06 | CONS ---
DATE OF CONSULTATION: DATE OF DICTATION: 09/30/2018 INFECTIOUS DISEASE CONSULTATION HISTORY OF PRESENT ILLNESS: The patient is a 73-year-old female evaluated for leukocytosis. She presented to the hospital on September 29, 2018, with left-sided chest pain and cough productive of greenish sputum. She had been seen as an outpatient by her primary care physician and was treated for an upper respiratory tract infection. On admission, chest x-ray was negative for infiltrate. Subsequently, a CT angiogram was performed of the chest and was negative for pulmonary embolism. It showed left basilar atelectasis and a pulmonary nodule; however, no evidence of infiltrate. At the present time she is awake and alert. She is out of bed to chair. She complains of left-sided chest pain. She denies cough at the present time, denies sputum production. No complaints of fever or chills. She denies any abdominal pain, vomiting, diarrhea, dysuria or hematuria. In the emergency room, she was noted to have a white blood cell count of 81,000, predominantly lymphocytes. She is being evaluated for suspected acute leukemia. PAST MEDICAL HISTORY: Positive for diabetes mellitus, hypertension, atrial fibrillation, hyperlipidemia, thyroid disease. ALLERGIES: SULFA, NITROFURANTOIN. MEDICATIONS: Include Synthroid, Ecotrin, Lipitor, Lanoxin, Lasix, losartan. SOCIAL HISTORY: Lives at home with family members, nonsmoker, nondrinker. Denies ill contacts or recent travel. No recent hospital admissions. REVIEW OF SYSTEMS: Neurologic: No loss of consciousness, seizure activity, focal weakness. Cardiac: As per HPI. Respiratory: As per HPI. Gastrointestinal: Negative for vomiting or diarrhea. Genitourinary: Negative for urinary tract infection. LABORATORY DATA: White count 81,000, lymphocytes 90%, neutrophils 6%, ANC 5.2, hematocrit 26.6, platelets 99. Creatinine 0.8. IMAGING: CAT scan of the chest: No pulmonary embolism. Left basilar atelectasis, pulmonary nodule. CAT scan of the abdomen shows splenomegaly and retroperitoneal adenopathy. PHYSICAL EXAMINATION: General: She is out of bed to chair. Slightly short of breath at rest. Vital Signs: Temperature 98.2, blood pressure 109/81, pulse 94 and regular, respirations 20 per minute. HEENT: Sclerae anicteric. Cardiac: Heart sounds S1, S2. Lungs: Fine crepitations, right greater than left base. Abdomen: Soft. No tenderness elicited. No mass, rebound or rigidity. Extremities: Positive for pedal edema. IMPRESSION: 1. Marked leukocytosis, lymphatic predominant, probable acute leukemia. 2. Chest pain syndrome. PLAN: The patient is afebrile. No evidence of pneumonia on CAT scan. Would observe off antibiotic therapy. Discussed with Hematology. Thank you for the kind referral. BRINA RENNER M.D. KELLIE/[id number]
[2018-09-30 13:48] LABS: PLATELET ESTIMATE DECREASED
--- NOTE | 2018-09-30 14:24 | PN ---
Progress Note (short form) - Note Progress Note: Patient seen and examined c/o left upper rib cage pain Last Vital Signs Temp Pulse Resp BP Pulse Ox 98.2 F 92 H 20 109/81 95 09/30/18 05:28 09/30/18 11:26 09/30/18 05:28 09/30/18 05:28 09/29/18 21:00 Cor: RSR, No murmurs, No gallops Lungs: Clear to P&A Abd: Soft, Normal bowel sounds, No organomegaly Ext:1+ edema b/l Abnormal Lab Results 09/29/18 09/29/18 09/29/18 11:45 11:45 11:45 WBC 81.5 H* RBC 2.93 L Hgb 8.6 L Hct 26.6 L D MCHC RDW 24.0 H Plt Count 99 L D Neutrophils % 6.3 L D Neutrophils % (Manual) 2.0 L Lymphocytes % 90.8 H D Lymphocytes % (Manual) 50.0 H Monocytes % 1.9 L Blast Cells % (Manual) 40 H Nucleated RBC % 1 H PT with INR 22.60 H INR 1.90 H D-Dimer Potassium 3.3 L Anion Gap BUN Random Glucose Uric Acid Calcium 7.8 L Magnesium 1.4 L Total Bilirubin AST 48 H Alkaline Phosphatase 119 H LD Total Total Protein 6.2 L Albumin 2.8 L Triglycerides HDL Cholesterol 09/29/18 09/29/18 09/29/18 11:45 13:20 18:51 WBC RBC Hgb Hct MCHC RDW Plt Count Neutrophils % Neutrophils % (Manual) Lymphocytes % Lymphocytes % (Manual) Monocytes % Blast Cells % (Manual) Nucleated RBC % PT with INR INR D-Dimer 1275 H Potassium 3.3 L Anion Gap BUN 19 H Random Glucose 112 H Uric Acid 9.8 H Calcium 7.9 L Magnesium 1.4 L Total Bilirubin 1.1 H AST 51 H Alkaline Phosphatase LD Total 795 H Total Protein 6.2 L Albumin 2.8 L Triglycerides HDL Cholesterol 09/30/18 09/30/18 09/30/18 06:30 06:30 06:30 WBC 61.6 H* RBC 2.91 L Hgb 8.0 L Hct 26.0 L MCHC 30.7 L RDW 25.0 H Plt Count 78 L D Neutrophils % 5.0 L D Neutrophils % (Manual) Lymphocytes % 91.6 H Lymphocytes % (Manual) Monocytes % 1.8 L Blast Cells % (Manual) Nucleated RBC % PT with INR 22.20 H INR 1.87 H D-Dimer Potassium 3.3 L Anion Gap 7 L BUN Random Glucose Uric Acid Calcium 7.8 L Magnesium 1.6 L Total Bilirubin 1.1 H AST 45 H Alkaline Phosphatase 120 H LD Total Total Protein 5.8 L Albumin 2.6 L Triglycerides 280 H HDL Cholesterol 9 L Active Medications Generic Name Dose Route Start Last Admin Trade Name Freq PRN Reason Stop Dose Admin Aspirin 81 mg 09/30/18 10:00 09/30/18 10:11 Ecotrin - PO 81 mg DAILY THEE Administration Atorvastatin Calcium 20 mg 09/29/18 22:00 09/29/18 22:25 Lipitor - PO 20 mg HS THEE Administration Digoxin 0.25 mg 09/30/18 10:00 09/30/18 11:26 Lanoxin - PO 0.25 mg DAILY THEE Administration Fluticasone Propionate 1 spray 09/29/18 15:09 Flonase - NS DAILY PRN allegy Levothyroxine Sodium 100 mcg 09/30/18 07:00 09/30/18 06:01 Synthroid - PO 100 mcg DAILY@0700 THEE Administration Losartan Potassium 25 mg 09/30/18 10:00 09/30/18 10:11 Cozaar - PO 25 mg DAILY THEE Administration Magnesium Oxide 400 mg 09/29/18 22:00 09/30/18 10:11 Mag-Ox - PO 400 mg BID THEE Administration Metoprolol Succinate 100 mg 09/30/18 10:00 09/30/18 10:11 Toprol Xl - PO 100 mg DAILY THEE Administration Metoprolol Succinate 50 mg 09/29/18 22:00 09/29/18 22:25 Toprol Xl - PO 50 mg HS THEE Administration Potassium Chloride 40 meq 09/29/18 15:45 09/30/18 10:11 K-Dur - PO 40 meq DAILY THEE Administration Warfarin Sodium 1 mg 09/29/18 18:00 09/29/18 19:03 Coumadin - PO Not Given DAILY@1800 [facility] Warfarin Sodium 2.5 mg 09/30/18 18:00 Coumadin - PO 09/30/18 18:01 ONCE@1800 ONE A/P 73 y/o patient with HTN, HPL, S/P [place], hx of gout, hx of anemia, hx of thryroid disease , DM(II) ,afib on warfarin, comes in with left lower rib cage pain, anemia, thrombocytopenia, leukocytosis 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 Discussed with patients family in great detail
[2018-09-30 17:37] VITALS: BP 122/75; PULSE 109; TEMP 99.3
[2018-09-30] MEDS ORDERED: WARFARIN NA 2.5 MG TABLET (FP) PO ONE (18:00)
--- NOTE | 2018-10-02 16:10 | PATH ---
Surgical Pathology Report Patient Name: RL GASCA [facility]. Rec. #: [id number] /Age/Gender: 1945 (Age: 73) / F Account: [id number] Location: [facility] MED/SURG Taken: 09/29/2018 Received: 09/29/2018 Reported: 10/02/2018 Physicians: Allan Obrien M.D. Specimen(s) Received 2 GREEN TOP TUBES Clinical History Acute leukemia Final Diagnosis COMPREHENSIVE FLOW PANEL performed and interpreted at [place], [place] ([id number]) shows the following: INTERPRETATION: A B-LYMPHOBLAST POPULATION, 80% OF TOTAL EVENTS, IS DETECTED, CONSISTENT WITH PERPHERAL BLOOD INVOLVEMENT BY B-LYMPHOBLASTIC LEUKEMIA/LYMPHOMA, SEE COMMENT. Comment: The findings were discussed with Dr. Galindo on 09/30/2018 at approximately 12:00 pm. Viability: 96% Abnormal Cells: 80% B-lymphoblasts Cell Size: Small Phenotype: An immature CD34+, CD117-, CD45 (dim), HLA-Dr+, CD13 (dim), CD33 (dim), CD10+, CD19+, CD20 (dim, subset), cCD79a+, TdT+ B-cell population, 80% of total events, is present. Additional Tests: Cytogenetics, FISH See [facility] report ([id number]) for additional details. Electronically Signed Benjamin Dawson M.D. Addendum Reported: 10/03/2018 Addendum Diagnosis Acute Myeloid Leukemia FISH Panel performed and interpreted at [facility] ([id number]) shows the following: INTERPRETATION: BCR/ABL1 t(9;22) translocation is detected. No evidence of deletion 5q or monosomy 5 is present. No evidence of deletion 7q or monosomy 7 is present. No evidence of trisomy 8 (+8) is present. No evidence of a rearrangement of 11q23. No PML/HERMINIA t(15;17) translocation is detected. No ETO/AML1 t(8;21) translocation is detected. No CBFB (16q22) rearrangement is detected. See [facility] report for additional details ([id number]) Benjamin Dawson M.D. Addendum Reported: 10/05/2018 Addendum Diagnosis CYTOGENETIC KARYOTYPE ANALYSIS performed and interpreted at [facility] ([id number]) shows the following: RESULTS: Tissue Culture Failure INTERPRETATION: This unstimulated peripheral blood specimen did not produce any analyzable metaphase cells and, therefore, chromosome analysis is not possible. A bone marrow aspirate, when clinically appropriate, is recommended. See [facility] report for additional details ([id number]). Stacy Carballo M.D. Addendum Reported: 10/11/2018 Addendum Diagnosis BCR-ABL Gene Rearrangement (IS) [facility] [place] [place] [place] ([id number]) shows the following: RESULTS: Positive BCR/ABL Major breakpoints (b2a2 and b3a2): Detected Ratio; 172.767% International Scale Value: 69.039% BCR/ABL Minor breakpoint (e1a2): Not Detected INTERPRETATION: BCR-ABL translocation was detected in this sample. See [facility] report ([id number]) for additional details. Stacy Carballo M.D. Gross Description Received are 2 green top tubes of blood which are sent to [facility]. DL10/02/2018 saudi10/02/2018
== END 2018-09-30 18:48 | disposition short-term general hospital (02) | DRG 841 ==
LOC: JER 11:07 → JERBED 14:52 → J7W 17:30
PROVIDERS: ADMIT Family Medicine; ATTEND Family Medicine
DX: C94.80 Other specified leukemias not having achieved remission (principal); J98.11 Atelectasis; I10 Essential (primary) hypertension; E78.5 Hyperlipidemia, unspecified; I25.2 Old myocardial infarction; E11.9 Type 2 diabetes mellitus without complications; D69.6 Thrombocytopenia, unspecified; D72.829 Elevated white blood cell count, unspecified; D64.9 Anemia, unspecified; I25.10 Atherosclerotic heart disease of native coronary artery without angina pectoris; M10.9 Gout, unspecified; R07.89 Other chest pain; E03.9 Hypothyroidism, unspecified; I48.2 Chronic atrial fibrillation; R16.1 Splenomegaly, not elsewhere classified; Z87.891 Personal history of nicotine dependence
CPT/HCPCS: 36415; 70450-TC; 71046-TC-FY; 71275-TC; 74176-TC; 80053; 80061; 80162; 82550; 83615; 83721; 83735; 84484; 84550; 85025; 85379; 85384; 85610; 85730; 87804; 88300-TC; 90670; 90688; 93005; 93010; 99285-25; G0008; G0009